=== PATIENT | female | born 1995 | race Caucasian/White ===

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

== ENCOUNTER → 2017-10-06 | Outpatient (CLI) | payer BC | LOC: COL.VAS 09:44 | DX: I35.2 Nonrheumatic aortic (valve) stenosis with insufficiency (principal) ==

== ENCOUNTER → 2020-04-16 | Outpatient (CLI) | payer BC | LOC: COL.VAS 12:23 | DX: I35.0 Nonrheumatic aortic (valve) stenosis (principal); I35.1 Nonrheumatic aortic (valve) insufficiency ==